=== PATIENT | female | born 1960 | race Caucasian/White ===

== ENCOUNTER 2023-03-13 10:56 | Emergency (ER) | payer OTHER, SELFPAY ==
--- NOTE | 2023-03-13 11:10 | ED.ANIMALBIT ---
HPI - Animal Bite General Chief Complaint: Animal Bite Stated Complaint: Cat Bite/Right Arm Time Seen by Provider: 03/13/23 11:10 Source: patient Mode of arrival: ambulatory Limitations: no limitations History of Present Illness HPI narrative: 62-year-old female presented for complaint of cat bite to the right forearm yesterday. The cat is her domestic indoor cat, up to date on vaccinations. States the cat was playing when it bit her arm. Endorses the site has become more red and swollen over the past few days with moderate pain. Denies pus, drainage, or streaking up the arm. Denies n/v/d/f/c. Taking ibuprofen and applying ice. Related Data Home Medications Medication Instructions Recorded Confirmed esomeprazole magnesium 40 mg mg 03/13/23 capsule,delayed release fluoxetine 10 mg capsule mg 03/13/23 hydrocodone 5 mg-acetaminophen 325 tablet 03/13/23 mg tablet pregabalin 75 mg capsule mg 03/13/23 tizanidine 2 mg tablet mg 03/13/23 Allergies Allergy/AdvReac Type Severity Reaction Status Date / Time No Known Allergies Allergy Mild Verified 04/05/10 21:57 Review of Systems Review of Systems: CONSTITUTIONAL: Denies body aches, fever, chills, or sweats. EYES: Denies visual changes, redness, or discharge. ENT: Denies rhinorrhea, congestion CARDIOVASCULAR: Denies chest pain, palpitations, or edema. RESPIRATORY: Denies cough or dyspnea. GASTROINTESTINAL: Denies abdominal pain, nausea, vomiting, or diarrhea. SKIN: reports redness to right forearm MUSCULOSKELETAL: Denies back pain, joint pain, or myalgia. NEUROLOGIC: Denies headache, numbness, tingling, or weakness. [facility] Past Medical History Medical History (Updated 03/13/23 @ 11:20 by Martha Mariscal APRN) No pertinent past medical history Comments At time of signature, I have reviewed and agree with nursing past medical, surgical, social and family history unless otherwise noted. Please see nursing chart for further information. There is no relevant family history pertinent to the presenting complaint Exam Narrative: GENERAL: Well-appearing HEAD: Normocephalic, atraumatic. EYES: conjunctivae clear, and EOMI. ENT: Mucous membranes moist. Oropharynx without edema, erythema or lesions. NECK: Supple. No lymphadenopathy CHEST: Clear to auscultation. HEART: Regular rate and rhythm. SKIN: Warm, dry. right forearm dorsal surface with approx [id number] area of erythema and mild swelling c/w mild cellulitis surrounding scabbed puncture sites at the center. Cellulitis is not circumferential. No fluctuance, purulence or drainage, no induration or streaking. Site is mildly tender. No swelling to wrist or hand, normal color to hand. CMS intact. NEURO: Alert and oriented x3. Extrem: Elbow/forearm/wrist images: 1. area of mild swelling and erythema Course Course Emergency Course: Patient is aware of diagnosis, understands and agrees to treatment plan. Anticipatory guidance given. Patient agrees to follow-up as directed and is aware of reasons to seek care at the emergency department. Portions of this record may have been created with voice recognition software Level of Care: Express Care Visit Vital Signs Vital signs: Reviewed MDM - Animal Bite MDM Narrative Medical decision making narrative: Discussed physical exam findings c/w mild cellulitis resulting from cat bite sustained yesterday. Rx Augmentin. Advised supportive measures and signs/symptoms to go to the ER. Pt is appropriate for outpt treatment and f/u. Differential Diagnosis Differential diagnosis: Likely bite by animal, cat bite and rabies contact Discharge Plan Discharge Clinical Impression: Cat bite Patient Disposition: Home, Self-Care Condition: Stable Instructions: Antibiotic Form, Animal Bite (ED) Additional Instructions: Keep the area clean and dry - cleanse with warm water and mild soap and allow to fully dry. Ok to apply neosporin to the si
[2023-03-13 11:12] VITALS: BP 100/65; PULSE 74; RESP 16; TEMP 36.8; O2SAT 100
== END 2023-03-13 11:22 | disposition home or self-care (01) ==
PROVIDERS: Emergency Provider Nurse Practitioner Family; PCP Internal Medicine
DX: S51.831A Puncture wound without foreign body of right forearm, initial encounter (principal); W55.01XA Bitten by cat, initial encounter
CPT/HCPCS: 99213; G0463

== ENCOUNTER 2023-08-23 15:11 | Emergency (ER) | payer OTHER, SELFPAY ==
[2023-08-23 15:19] VITALS: BP 111/46; PULSE 77; RESP 20; TEMP 37.3; O2SAT 100
--- NOTE | 2023-08-23 15:34 | ED.WOUNDLAC ---
HPI - Wound/Laceration General Chief Complaint: Wound/Laceration Stated Complaint: Laceration to Finger Time Seen by Provider: 08/23/23 15:35 Source: patient Mode of arrival: ambulatory Limitations: no limitations History of Present Illness HPI narrative: 63 y/o female presented for c/o laceration to left index finger (distal phalanx). Injury sustained last night around 2100 states she cut the finger on a piece of metal while at work. Denies decreased ROM at joint. No active bleeding. right-hand dominant. Unsure of last tetanus. Related Data Allergies Allergy/AdvReac Type Severity Reaction Status Date / Time No Known Allergies Allergy Mild Verified 08/23/23 15:14 Review of Systems Review of Systems: CONSTITUTIONAL: Denies body aches, fever, chills, or sweats. EYES: Denies visual changes, redness, or discharge. ENT: Denies rhinorrhea, congestion CARDIOVASCULAR: Denies chest pain, palpitations, or edema. RESPIRATORY: Denies cough or dyspnea. GASTROINTESTINAL: Denies abdominal pain, nausea, vomiting, or diarrhea. SKIN: reports finger laceration MUSCULOSKELETAL: Denies back pain, joint pain, or myalgia. NEUROLOGIC: Denies headache, numbness, tingling, or weakness. [facility] Past Medical History Medical History (Updated 08/23/23 @ 15:56 by Martha Wood, GWENDOLYN) No pertinent past medical history Comments At time of signature, I have reviewed and agree with nursing past medical, surgical, social and family history unless otherwise noted. Please see nursing chart for further information. There is no relevant family history pertinent to the presenting complaint Exam Narrative: GENERAL: Well-appearing HEAD: Normocephalic, atraumatic. EYES: conjunctivae clear, and EOMI. ENT: Mucous membranes moist. Oropharynx without edema, erythema or lesions. NECK: Supple. No lymphadenopathy CHEST: Clear to auscultation. HEART: Regular rate and rhythm. SKIN: Warm, dry. Left 2nd digit lac to distal phalanx/DIP approx 2cm not gaping, no bleeding, no surrounding swelling. NEURO: Alert and oriented x3. Course Course Emergency Course: Patient is aware of diagnosis, understands and agrees to treatment plan. Anticipatory guidance given. Patient agrees to follow-up as directed and is aware of reasons to seek care at the emergency department. Portions of this record may have been created with voice recognition software Level of Care: Express Care Visit Vital Signs Vital signs: Vital Signs Temperature 99.1 F 08/23/23 15:19 Pulse Rate 77 08/23/23 15:19 Respiratory Rate 20 08/23/23 15:19 Blood Pressure 111/46 L 08/23/23 15:19 Pulse Oximetry 100 08/23/23 15:19 Oxygen Delivery Room Air 08/23/23 15:19 Temperature 99.1 F 08/23/23 15:19 Pulse Rate 77 08/23/23 15:19 Respiratory Rate 20 08/23/23 15:19 Blood Pressure 111/46 L 08/23/23 15:19 Pulse Oximetry 100 08/23/23 15:19 Oxygen Delivery Room Air 08/23/23 15:19 Reviewed Procedures Laceration left 2nd digit: Date: 08/23/23 Size (cm): 2 Description: linear and clean Depth: simple, single layer Pre-repair: wound explored and other (cleansed with skintegrity) ====== Skin Level ====== Skin layer closed with: dermabond and steri strips ====== Subcutaneous Layer ====== ====== Muscle Layer ====== ====== Tendon Layer ====== Dressing: Finger splint applied MDM - Wound/Laceration MDM Narrative Medical decision making narrative: Discussed physical exam findings, laceration repaired with steri strips, dermabond and splint applied. Tetanus updated. Advised supportive measures and signs/symptoms to go to the ER. Pt is appropriate for outpt treatment and f/u. Differential Diagnosis Differential diagnosis: Likely laceration, abrasion and avulsion of skin Discharge Plan Discharge Clinical Impression: Finger laceration Qualifiers: Encounter type: initial enc
[2023-08-23] MEDS: TETANUS,DIPHTHERIA,AC PERTUSSIS ADULT (0.5 ML) BOOSTRIX IM (15:59)
== END 2023-08-23 16:20 | disposition home or self-care (01) ==
PROVIDERS: Emergency Provider Nurse Practitioner Family; PCP Internal Medicine
DX: S61.211A Laceration without foreign body of left index finger without damage to nail, initial encounter (principal); W45.8XXA Other foreign body or object entering through skin, initial encounter; Z23 Encounter for immunization
CPT/HCPCS: 12001; 90471; 90715; 99213; G0463

== ENCOUNTER 2023-11-21 09:25 | Emergency (ER) | payer OTHER, SELFPAY ==
[2023-11-21 09:30] VITALS: BP 104/71; PULSE 73; RESP 16; TEMP 36.2; O2SAT 99
--- NOTE | 2023-11-21 09:45 | ED.GENADULT ---
HPI - General Adult General Chief complaint: Urogenital-Female Stated complaint: Urinary Problem Source: patient, RN notes reviewed and old records reviewed Mode of arrival: ambulatory Limitations: no limitations History of Present Illness HPI narrative: 63-year-old female presents to [facility] with complaints of burning with urination, urinary frequency, urinary urgency that started Sunday/ Sunday. Patient states is having slight suprapubic pain/ tenderness but denies back pain, vomiting, fever. Related Data Home Medications Medication Instructions Recorded Confirmed fluoxetine 10 mg capsule 10 mg PO DAILY 11/21/23 11/21/23 omeprazole 40 mg capsule,delayed 40 mg PO DAILY 11/21/23 11/21/23 release Allergies Allergy/AdvReac Type Severity Reaction Status Date / Time No Known Allergies Allergy Mild Verified 11/21/23 09:49 Review of Systems Constitutional: Constitutional: Reports no additional constitutional complaints, Denies body ache(s), Denies chills, Denies fatigue, Denies fever(s) and Denies headache(s) Eyes: Eyes: Reports no additional eye complaints and Denies blurry vision ENT: Reports system reviewed and no additional complaints, except as documented, Denies vertigo, Denies dizziness, Denies ear discharge, Denies otalgia, Denies facial pain, Denies headache(s), Denies nasal congestion, Denies nasal discharge, Denies sinus pain, Denies sinus pressure and Denies sore throat Cardiovascular: Cardiovascular: Reports no additional cardiovascular complaints, Denies chest pain, Denies chest pain at rest, Denies rapid heart rate and Denies dyspnea Respiratory: Respiratory: Reports no additional respiratory complaints, Denies chest congestion, Denies cough, Denies pain on inspiration, Denies pain with cough and Denies dyspnea Gastrointestinal: Gastrointestinal: Reports abdominal pain (suprapubic), Denies diarrhea, Denies nausea and Denies vomiting Genitourinary: Genitourinary: Reports as per HPI, Reports nocturia, Reports dysuria and Reports urinary urgency Integumentary/Breasts: Skin/Breast: Denies rash Neurologic: Reports system reviewed and no additional complaints, except as documented, Denies vertigo, Denies dizziness and Denies headache(s) Endocrine: Endocrine: Denies fatigue [facility] Past Medical History Medical History No pertinent past medical history Comments At the time of my signature, I reviewed and agree with the nursing past medical, surgical, social, and family history. There is no relevant family history pertinent to the patient complaint. Exam Const: General: cooperative, healthy appearing, no acute distress and well nourished Nutritional Appearance: well nourished Orientation/consciousness: patient oriented x3 Limitations: no limitations HENMT: Head: normal to inspection and normocephalic Ears: external ears normal Face/Nose/Sinus: normal facial exam Face and sinus: normal facial exam Mouth: Yes Normal oral and palatal mucosa present, Yes oropharynx normal and Yes moist mucous membranes Eyes: General: appearance normal, both eyes and all related structures Sclera: sclerae normal Pupils: Equal, round and reactive pupils present Resp: Effort & Inspection: normal respiratory effort, able to speak in complete sentences, no audible wheezes, no cough, no respiratory distress and no retractions GI: GI Palp: Yes abdominal tenderness ( Suprapubic), Yes Soft to palpation, No Firmness to palpation present (GI), No Guarding due to palpation present (GI), No Rigid due to palpation, Yes No hepatosplenomegaly present, No Splenomegaly present, No Hernia present and No Palpable mass present : General: Yes bladder normal to inspection, Yes bladder normal to palpation and Yes no CVA tenderness Skin: General skin exam: normal color and no rashes or lesions noted Neuro: General: patient oriented x3 Cranial nerves: Yes Equal, round and reactiv
== END 2023-11-21 09:59 | disposition home or self-care (01) ==
PROVIDERS: Emergency Provider Registered Nurse; PCP Internal Medicine
DX: N30.01 Acute cystitis with hematuria (principal); B96.20 Unspecified Escherichia coli [E. coli] as the cause of diseases classified elsewhere
CPT/HCPCS: 81003; 87077; 87086; 87088; 87186; 99213; G0463

== ENCOUNTER 2024-03-09 17:09 | Emergency (ER) | payer OTHER, SELFPAY ==
[2024-03-09 17:18] VITALS: BP 116/67; PULSE 140; RESP 18; TEMP 36.7; O2SAT 98
--- NOTE | 2024-03-09 17:29 | ED.GENADULT ---
HPI - General Adult General Chief complaint: Urogenital-Female Stated complaint: Urinary Problem Source: patient Mode of arrival: ambulatory Limitations: no limitations History of Present Illness HPI narrative: Patient presents for evaluation of urinary symptoms. Symptom onset this morning. She reports dysuria, urinary frequency hesitancy, incomplete emptying, and low back pain. No fever, chills, nausea, abdominal pain. She has a history of urinary tract infections and this feels similar. Related Data Home Medications Medication Instructions Recorded Confirmed fluoxetine 10 mg capsule 10 mg PO DAILY 11/21/23 11/21/23 omeprazole 40 mg capsule,delayed 40 mg PO DAILY 11/21/23 11/21/23 release pregabalin 75 mg capsule mg 03/09/24 Allergies Allergy/AdvReac Type Severity Reaction Status Date / Time No Known Allergies Allergy Mild Verified 11/21/23 09:49 Review of Systems Review of Systems: CONSTITUTIONAL: Denies fever, chills, or sweats. EYES: Denies visual changes, redness, or discharge. ENT: Denies rhinorrhea, congestion, sore throat, or otalgia. CARDIOVASCULAR: Denies chest pain, palpitations, or edema. RESPIRATORY: Denies cough or dyspnea. GASTROINTESTINAL: Denies abdominal pain, nausea, vomiting, or diarrhea. GENITOURINARY: Reports frequency, hesitancy, urgency, dysuria, incomplete emptying SKIN: Denies rash or itching. MUSCULOSKELETAL: Reports low back pain. Denies joint pain, or myalgia. NEUROLOGIC: Denies headache, numbness, dizziness, or weakness. PSYCHIATRIC: Denies anxiety or depression. [facility] Past Medical History Medical History No pertinent past medical history Surgical History Surgical History No pertinent past surgical history Family History Family History Mother Family history non-contributory Social History Social History Substance use: never Gender identity (if verbalized by the patient): Female Spiritual care concerns: No Exam Narrative: GENERAL: Well-appearing, well-nourished, and in no acute distress. HEAD: Normocephalic, atraumatic. EYES: PERRLA and EOMI. ENT: Nares clear, no rhinorrhea or epistaxis. Mucous membranes moist. Oropharynx without tonsillar hypertrophy exudate or other lesions. Bilateral TMs pearly merchant nonbulging NECK: Supple. No adenopathy or masses. No carotid bruits or JVD CHEST: Clear to auscultation. No respiratory distress. No wheezes rales or rhonchi HEART: Rate 108. Normal rhythm. No murmur heard. Normal peripheral pulses. ABDOMEN: Soft, nontender, nondistended, normal active bowel sounds. EXTREMITIES: Normal range of motion. No edema. SKIN: Warm, dry, no rash. NEURO: No focal deficits. Alert and oriented x3. PSYCH: Anxious. Normal mood and affect. Course Course Emergency Course: This is a 63-year-old female who presented for evaluation urinary symptoms. Her heart rate was initially elevated but improved on my evaluation and likely 2/2 anxiety. Urine results today consistent with UTI. Will send Bactrim and Pyridium to her pharmacy. She should follow-up with her primary care provider and go to the ER for worsening symptoms. Patient in agreement with plan of care. Level of Care: Express Care Visit Vital Signs Vital signs: Vital Signs Temperature 36.7 C 03/09/24 17:18 Pulse Rate 140 H 03/09/24 17:18 Respiratory Rate 18 03/09/24 17:18 Blood Pressure 116/67 03/09/24 17:18 Pulse Oximetry 98 03/09/24 17:18 Oxygen Delivery Room Air 03/09/24 17:18 Temperature 36.7 C 03/09/24 17:18 Pulse Rate 140 H 03/09/24 17:18 Respiratory Rate 18 03/09/24 17:18 Blood Pressure 116/67 03/09/24 17:18 Pulse Oximetry 98 03/09/24 17:18 Oxygen Delivery Room Air 03/09/24
[2024-03-09 17:31] LABS: EDUAAPPEAR Cloudy; EDUABILI Negative; EDUABLOOD 1+; EDUACOLOR1 Yellow; EDUAGLUCOSE Negative; EDUAKETONE Trace; EDUALEUKO 1+; EDUANITRATE Negative; EDUAPH 5.5; EDUAPROTEIN Negative; EDUAUROBILI 0.2
== END 2024-03-09 17:32 | disposition home or self-care (01) ==
PROVIDERS: Emergency Provider Nurse Practitioner; PCP Internal Medicine
DX: N39.0 Urinary tract infection, site not specified (principal)
CPT/HCPCS: 81003; 87077; 87086; 87088; 87186; 99213; G0463

== ENCOUNTER 2024-05-01 08:36 | Emergency (ER) | payer OTHER, SELFPAY ==
[2024-05-01 08:53] VITALS: BP 114/62; PULSE 55; RESP 16; TEMP 36.5; O2SAT 100
--- NOTE | 2024-05-01 08:56 | ED.UPPEXIN ---
HPI - Extremity Injury (Upper) General Chief Complaint: Extremity Injury, Upper Stated Complaint: rt wrist injury Time Seen by Provider: 05/01/24 08:59 Source: patient, RN notes reviewed and old records reviewed Mode of arrival: ambulatory Limitations: no limitations History of Present Illness HPI narrative: 61-year-old female to [facility] for complaints of left Wrist/hand pain. Patient reports that back in March she struck her left mid dorsal forearm against a metal rack in the freezer when trying to get something out. patient states over the past week she has had pain in dorsal hand and has noticed a raised area there. Patient denies any recent injury, numbness, tingling weakness. Patient states that she saw her PCP and was told that she likely had a deep bruise her dorsal forearm. Patient has treated ibuprofen and an elastic wrist brace with little relief. Patient in no acute distress. Related Data Home Medications Medication Instructions Recorded Confirmed fluoxetine 10 mg capsule 10 mg PO DAILY 11/21/23 05/01/24 omeprazole 40 mg capsule,delayed 40 mg PO DAILY 11/21/23 05/01/24 release pregabalin 75 mg capsule 75 mg PO DAILY 03/09/24 05/01/24 Allergies Allergy/AdvReac Type Severity Reaction Status Date / Time No Known Allergies Allergy Mild Verified 05/01/24 08:54 Review of Systems Review of Systems: All systems reviewed & are unremarkable except as noted in HPI and below Constitutional: Constitutional: Reports no additional constitutional complaints Eyes: Eyes: Reports no additional eye complaints ENT: Reports system reviewed and no additional complaints, except as documented Cardiovascular: Cardiovascular: Reports no additional cardiovascular complaints, Denies chest pain and Denies dyspnea Respiratory: Respiratory: Reports no additional respiratory complaints, Denies cough and Denies dyspnea Musculoskeletal: Musculoskeletal: Reports as per HPI and Reports other Comments: Left dorsal hand pain without injury Neurologic: Reports system reviewed and no additional complaints, except as documented Psychiatric: Psychiatric: Reports no additional psychiatric complaints [facility] Past Medical History Medical History No pertinent past medical history Surgical History Surgical History No pertinent past surgical history Family History Family History Mother Family history non-contributory Social History Social History Substance use: never Gender identity (if verbalized by the patient): Female Spiritual care concerns: No Comments At the time of my signature, I reviewed and agree with the nursing past medical, surgical, social, and family history. There is no relevant family history pertinent to the patient complaint. Exam Const: General: cooperative, comfortable, no acute distress, alert and well nourished Nutritional Appearance: well nourished Orientation/consciousness: patient oriented x3 Limitations: no limitations HENMT: Head: normal to inspection Ears: external ears normal Face/Nose/Sinus: Normal external nose present, Normal nares present, normal facial exam, No erythema and No edema Face and sinus: normal facial exam, no erythema and no edema Mouth: Yes Normal oral and palatal mucosa present Eyes: General: appearance normal, both eyes and all related structures Neck: Neck: normal visual inspection, full ROM and no meningeal signs Chest: Chest palpation & inspection: normal inspection of the chest Resp: Effort & Inspection: normal respiratory effort and able to speak in complete sentences Auscultation: clear to auscultation bilaterally Cardio: Jugular venous distension: no JVD Rate: regular rate Rhythm: regular rhythm [place]
[2024-05-01 09:02] VITALS: BP 114/62; PULSE 55; RESP 16; TEMP 36.5; O2SAT 100
== END 2024-05-01 09:18 | disposition home or self-care (01) ==
PROVIDERS: Emergency Provider Nurse Practitioner Family; PCP Internal Medicine
DX: M25.532 Pain in left wrist (principal); K21.9 Gastro-esophageal reflux disease without esophagitis; F41.9 Anxiety disorder, unspecified
CPT/HCPCS: 99212; G0463

== ENCOUNTER 2024-05-20 11:20 | Outpatient (CLI) | payer OTHER, SELFPAY ==
--- NOTE | ~2024-05-20 | XR_ITS ---
Right Hand Technique: PA, oblique, and lateral views were obtained. Clinical History: Pain Findings: No acute fracture or dislocation is seen. Osseous alignment is anatomic. Joint spaces are p reserved. Soft tissues are unremarkable. Impression: Unremarkable right hand. Reviewed, dictated and finalized at location M. Impression: Unremarkable right hand.
--- NOTE | ~2024-05-20 | XR_ITS ---
Left Hand Technique: PA, oblique, and lateral views were obtained. Clinical History: Pain Findings: No acute fracture or dislocation is seen. Osseous alignment is anatomic. Joint spaces are p reserved. Soft tissues are unremarkable. Impression: Unremarkable left hand. Reviewed, dictated and finalized at location M. Impression: Unremarkable left hand.
== END 2024-05-20 11:21 | disposition home or self-care (01) ==
LOC: ANHIMG 11:22
PROVIDERS: PCP Internal Medicine; Visit Provider Plastic Surgery
DX: M19.042 Primary osteoarthritis, left hand (principal); M19.041 Primary osteoarthritis, right hand
CPT/HCPCS: 73130

== ENCOUNTER 2024-07-04 08:15 | Outpatient (RCR) | payer OTHER, SELFPAY ==
--- NOTE | 2024-06-05 09:43 | OTOPEVAL1 ---
Assessment and note entered by Nirmal Rock, YAMILA/Yogesh, CHT Evaluation Information Assessment Status Evaluation Diagnosis M65.4 Radial styloid tenosynovitis Subjective Information Patient is right handed. She reports left wrist pain since early March. She works in a [employer] and has been having increasingly difficult time managing work tasks. She reports when she leaves work her pain is 10/10, my hands are on fire . She uses heat packs for relief. She does note having an injury to the radial side of the wrist just prior to having a flair up of all of this pain. She reports she banged her arm on a metal shelf. Reported Pain Level Pain Score 5: Self Report Assessment OT Clinical Summary Patient referred to OT with dx of left radial styloid tenosynovitis. She presents with pain and weakness that is limiting her ability to complete work and ADL tasks without significant pain. Fabricated a long thumb spica orthotic today and she reports comfortable fit. Continued skilled OT indicated for use of modalities for pain relief, progressive therapeutic exercise, and HEP instruction to facilitate return to functioning. Plan of Care Interventions Therapeutic Exercise,Manual Therapy,Therapeutic Activities,Hot Pack/Cold Pack,Check Out for Orthotic/Pr,Ultrasound,Paraffin OT Services Indicated Yes Treatment Frequency and 2x/week for 8 visits Duration These treatments will address the objective and functional deficits as defined above. The patient will be advanced safely and appropriately in order for the patient to progress towards his/her prior level of function. Additional exercises will be introduced and as well as a comprehensive home exercise program upon discharge, if needed, ?to ensure carryover of functional gains achieved in the clinic. This treatment plan has been reviewed and agreement upon by the patient.
--- NOTE | 2024-06-05 09:43 | OPREHPOC ---
Outpatient Therapy Plan of Care This is a Multidisciplinary Plan of Care that may contain components documented by all disciplines (PT, OT, and ST.) OT Problem 1 OT Problem #1 Knowledge Deficit OT Goal 1 Goal / Goal Update 1. Pt to be indep with instructed materials. OT Problem 2 OT Problem #2 Pain OT Goal 1 Goal / Goal Update 1. Patient to report no instances of 10/10 pain in the last week. 2. Patient to report pain less than 5/10 with ADLs and work tasks. OT Problem 3 OT Problem #3 Impaired Strength OT Goal 1 Goal / Goal Update 1. Patient to improve functional strength of the left wrist for ADLs as demonstrated by completing wrist strengthening HEP with 2 lb. weights without pain. 2. Patient to improve functional strength of the left hand for ADLs as demonstrated by completing model technician/pinch strengthening HEP with yellow putty without pain. Target Visit 8
--- NOTE | 2024-07-17 09:54 | PCOTNOTE ---
Patient did not show up for scheduled appointment this date. Called patient and left voicemail regarding missed appt.
--- NOTE | 2024-09-01 11:45 | OTOPDC ---
Occupational Therapy Discharge Notification - Patient attended the initial evaluation on 06/05/24 and 6 follow up appointments. - She did not show for her appointment on 07/17/24 and has not rescheduled. - Discharging OT at this time. Referring Provider: Francisco Valente MD
== END 2024-08-29 11:32 | disposition home or self-care (01) ==
LOC: ANHOT 08:15
PROVIDERS: PCP Internal Medicine; Visit Provider Plastic Surgery
DX: M65.4 Radial styloid tenosynovitis [de Quervain] (principal)
CPT/HCPCS: 97018; 97035; 97110; 97140; 97165; 97530; L3806

== ENCOUNTER 2024-09-04 14:14 | Emergency (ER) | payer OTHER, SELFPAY ==
--- OUTSIDE RECORDS SUMMARY | 2024-09-04 14:19 | XMS_ITS | Encounter Summary ---
Author Organization [facility] Address [address] [place] [address] Care Team Providers Care Javascript Application Developer Name Role Phone Giorgio Patel MD Primary Care Provider Encounter Details Date Type Department Care Team (Late st Contact Info) Description 06/04/2019 Orders Only [address] [id number] Rhonda Barks[place], TIMBER MANAGEMENT SPECIALIST [address] [place] [address] [address] Social History Tobacco Use Types Packs/Day Years Used Date Smoking Tobacco: Every Day Smokeless Tobacco: Never Comments:Smoking History Pac ks/day: 0.5 Packs Alcohol Use Standard Drinks/Week Comments No 0 (1 standard drink = 0.6 oz pur e alcohol) PHQ-2 Answer Date Recorded PHQ-2 Score 0 06/02/2019 Comments Unknown Sex and Gender Information Value Date Recorded Sex Assigned at Not on file Legal Sex Female 11:55 PM MUSIC DIRECTOR Gender Identity Female 12/09/2021 12:28 AM CDT Sexual Orientation Not on file documented as of this encounter Plan of Treatment Not on file documented as of this encounter Visit Diagnoses Not on filedocumented in this encounter Care Teams Javascript Application Developer Relationship Specialty Start Date End Date Giorgio Patel MD PCP - General 10/20/16 documented as of this encounter
--- OUTSIDE RECORDS SUMMARY | 2024-09-04 14:19 | XMS_ITS | Encounter Summary ---
Author Organization [facility] Address [address] [place] [id number] Care Team Providers Care Assembly Machine Tool Setter Name Role Phone Giorgio Patel MD Primary Care Provider Giorgio Patel MD Primary Care Provider Giorgio Patel MD Primary Care Provider Reason for Referral * (Routine) - Closed Specialty Diagnoses / Procedures Referred By Contac t Referred To Contact Procedures ECG 12 lead [facility] [address] [place] [address] Phone: tel: fax: Referral ID Status Reason Start Date Expiration Date Visits Re quested Visits Authorized [id number] Closed 06/04/2019 12/13/2020 1 1 Encounter Details Date Type Department Care Team (Late st Contact Info) Description 11/03/2009 Orders Only [facility] [address] [place] [address] Giorgio Patel MD [address] [place] [address] [place] [address] Social History Tobacco Use Types Packs/Day Years Used Date Smoking Tobacco: Never Assessed Comments Unknown Sex and Gender Information Value Date Recorded Sex Assigned at Not on file Legal 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 Gender Identity Female 12/09/2021 12:28 AM CDT Sexual Orientation Not on file documented as of this encounter Plan of Treatment Not on file documented as of this encounter Procedures Procedure Name Priority Date/Time Associated Diagnosis Comments ECG 12-LEAD Routine 11/03/2009 documented in this encounter Results * ECG 12 lead (11/03/2009) us Historical Provider ECG ORDERABLES Final Res ult documented in this encounter Visit Diagnoses Not on filedocumented in this encounter Care Teams Assembly Machine Tool Setter Relationship Specialty Start Date End Date Giorgio Patel MD PCP - General 10/20/16 Giorgio Patel MD PCP - General 06/26/14 10/19/16 Giorgio Patel MD PCP - General 09/09/07 06/25/14 documented as of this encounter
--- OUTSIDE RECORDS SUMMARY | 2024-09-04 14:20 | XMS_ITS | Encounter Summary ---
Author Organization [facility] Address [address] [place] [address] Phone Care Team Providers Care Production Foreman Name Role Phone Giorgio Patel MD Primary Care Provider Encounter Details Date Type Department Care Team (Late st Contact Info) Description 07/13/2017 Orders Only [facility] ProviderMarina MD [address] [place] [id number] Social History Tobacco Use Types Packs/Day Years Used Date Smoking Tobacco: Every Day Comments:Smoking History Pac ks/day: 0.5 Packs Alcohol Use Standard Drinks/Week Comments No 0 (1 standard drink = 0.6 oz pur e alcohol) Comments Unknown Sex and Gender Information Value Date Recorded Sex Assigned at Not on file Legal 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 Historical Provider LAB BLOOD ORDERABLES Maureen l Result documented in this encounter Visit Diagnoses Not on filedocumented in this encounter Care Teams Production Foreman Relationship Specialty Start Date End Date Giorgio Patel MD PCP - General 10/20/16 documented as of this encounter
--- OUTSIDE RECORDS SUMMARY | 2024-09-04 14:20 | XMS_ITS | Clinical Summary ---
Author Organization [facility] Address [address] [place] [id number] Care Team Providers [employer] Principal Name Role Phone Daniel Zayas MD Primary Care Provider Allergies No known active allergies Medications esomeprazole DR (NexIUM) 40 mg capsule TAKE 1 CAPSULE BY MOUTH ONCE DAILY BEFORE BREAKFAST 30 capsule 12/22/19 23 Active FLUoxetine 10 mg tablet/capsule Take 1 capsule by mouth once daily 90 capsule 3 09/07/19 24 Active traZODone (DESYREL) 50 mg tablet Take 1 tablet (50 mg total) by mouth nightly as needed for sleep 90 tablet 3 04/24/20 24 025 Active pregabalin (LYRICA) 75 mg capsule Take 1 capsule by mouth twice daily 60 capsule 5 04/24/20 24 Active HYDROcodone-ac etaminophen (NORCO) 5-325 mg per tablet Take 1 tablet by mouth every 4 (four) hours as needed for pain Take 1 tablet by mouth every 4 (four) hours as needed for pain 75 tablet 08/27/19 25 Active tiZANidine (ZANAFLEX) 2 mg tablet TAKE 1 TABLET BY MOUTH NIGHTLY FOR MUSCLE SPASM 30 tablet 08/28/19 25 Active tiZANidine (ZANAFLEX) 2 mg tablet Take 1 tablet (2 mg total) by mouth every 6 (six) hours as needed for muscle spasms 60 tablet 3 11/26/19 24 025 Discontinued HYDROcodone-ac etaminophen (NORCO) 5-325 mg per tablet Take 1 tablet by mouth every 4 (four) hours as needed for pain Take 1 tablet by mouth every 4 (four) hours as needed for pain 75 tablet 07/03/20 24 025 Discontinued(Re order) Active Problems Problem Noted Date Diagnosed Date History of lumbar spinal fusion 04/19/2022 Moderate episode of recurrent major depressive d isorder 04/18/2021 Past use of tobacco 04/15/2020 Epigastric pain 05/29/2019 Assessment & Plan (05/29/2019 10:59 AM TECHNICAL SALES SUPPORT MANAGER): Concerning of possible gastritis or gastric ulceration given presentation. EKG WNL today in clinic. Hold and call RUQ ultrasound to rule out concerns of cholecystitis given radicular pain to the scapula. Pending negative testing, which will be detailed above, recommending CBC & occult stool to eval for blood loss, CMP and pancreatic enzymes. The insurance coverage recommending omeprazole 20 mg b.i.d., p.r.n. use of Zofran, dietary modifications also encouraged in the interim. Consultation to vascular ultrasound technician for possible EGD pending negative RUQ ultrasound. Addendum created below with findings of RUQ testing. Left peroneal mononeuropathy 04/14/2019 Thoracic and lumbosacral neuritis 12/06/2013 Overview (10/25/2016): LUMBOSACRAL NEURITIS NOS Assessment & Plan (08/26/2018 9:28 AM TECHNICAL SALES SUPPORT MANAGER): I advised Pt is too early to fill her [place] that was last filled on 08/05/2018. I did encourage her to call us in 1 week to request script refill Resolved Problems Problem Noted Date Diagnosed Date Resolved Date Chest pain 05/29/2019 04/15/2020 Assessment & Plan (05/29/2019 10:56 AM TECHNICAL SALES SUPPORT MANAGER): Epigastric/chest pain with radiation to left scapula. EKG tracing above with prior tracing reviewed in 2009 w/o notable changes. Only cardiac risk factor this time as tobacco use. Working up further for possible gastritis VS other GI concerns. Red flags reviewed encouraging Pt to move for with ED presentation in the interim with any persistent, progressive chest pain pending results of all outpatient testing. Vitamin D deficiency 04/14/2019 020 Chronic right hip pain 08/26/201804/15 Assessment & Plan (08/26/2018 9:32 AM TECHNICAL SALES SUPPORT MANAGER): Suspicious of OA as cause of wtynx-hu-sxrzyde pain. Another differential diagnosis would include in injury to acetabulum based upon radiculopathy of pain. Recommending naproxen b.i.d., heat, an x-ray to diagnose etiology of condition. Will discuss further need for medications, consultations pending results of testing. Left maxillary sinusitis 07/19/201810/2018 Assessment & Plan (07/19/2018 10:21 AM TECHNICAL SALES SUPPORT MANAGER): Recommended use of humidifier or vaporizer, antihistamines budn-yrn-wvwdiam, nasal rinses, Flonase nasal spray, certainly for sore throat throat lozenges, salt water gargles, and Mucinex with increase fluids to assist with productivity and cough. I also encouraged him to take antibiotic as prescribed with side effects of medication discussed, to use antibiotics for specific antibiotics as recommended office, and close follow-up outpatient with any worsening or little improvement symptoms. Depression 12/06/2013 04/15/2020 Overview (10/25/2016): DEPRESSIVE DISORDER NEC Tobacco dependence syndrome 03/08/2011 04/15/2020 Overview (10/26/2016): Tobacco abuse Assessment & Plan (07/19/2018 10:24 AM TECHNICAL SALES SUPPORT MANAGER): Smoking cessation was encouraged in office today. Patient believes that she might actually be able to quit cold turkey and is strongly considering this. I did encourage her to reach out test we can assist with cessation in any way Menopausal syndrome 03/08/2011 04/15/20 20 Overview (10/27/2016): Menopausal syndrome Encounters Date Type Department Care Team Description 07/02/2024 Telephone [facility] Primary Care at [address] [place] [address] Deena Olson NP 07/02/2024 Orders Only [facility] Primary Care at [address] [phone] Deena Olson, NATE 06/30/2024 Telephone [facility] Primary Care at [address] [phone] Deena Olson, NATE 06/30/2024 Orders Only [facility] Primary Care at [address] [phone] Deena Olson, NATE Right wrist pain (Primary Dx) 06/27/2024 10:00 AM TECHNICAL SALES SUPPORT MANAGER Office Visit [facility] Primary Care at [address] [phone] Deena Olson NP Right wrist pain (Primary Dx); Ganglion cyst of both wrists 06/26/2024 11:31 AM TECHNICAL SALES SUPPORT MANAGER - 06/26/2024 1:41 PM TECHNICAL SALES SUPPORT MANAGER Emergency [facility] Emergency Department [address] [place] [address] Fall, initial encounter (Primary Dx) Discharge Disposition: Discharge to home or self care 06/26/2024 Nurse Triage [facility] Primary Care at [address] [phone] Daniel Zayas MD from Last 3 Months Immunizations Name Administration Dates Next Due H1N1 All Forms 10/30/2009 Influenza, Quadrivalent, Spl it, Preservative Free, Intradermal 04/07/2016 Influenza, Quadrivalent, Spl it, Preservative Free, Intramuscular 04/20/2023,04/19/2022,05/03/2021,04/15,05/29/2019,08/26/2018,08/10/2017 Influenza, Split 06/13/2013 Influenza, Trivalent, IM (MDV) 06/15/2015,2012,04/30/2009 Influenza, Trivalent, Preser vative Free, Intramuscular 04/24/2024,06/15/2015 Influenza, Trivalent, Recomb inant, Egg Free, Preservative Free, Antibiotic Free, IM (FLUBLOK) 06/26/2014 Influenza, Unspecified 05/03/2021(Deferr ed: Patient Refused),04/18/2021(Deferred: Patient Refused),03/18/2021(Deferred: Patient Refused),05/11/2017 Pfizer SARS-CoV-2 Monovalent Vaccination (12+ Yrs) PURPLE 10/27/2020,09/29/2020 Pneumococcal Polysaccharide PPV23 06/15/2015 Tdap 04/30/2009 Surgical History Surgery Date Site/Laterality Comments TUBAL LIGATION Bilateral tubal ligation OTHER SURGICAL HISTORY BACK FUSION L 4 L 5 2009 Medical History Medical History Date Comments 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 Hx Other Medical LBP Depression Depression Osteoarthritis Osteoarthritis Smoking previous Family History Medical History Relation Name Comments Parkinsonism Father Parkinson's dis ease; Cause of : Parkinson's disease Alzheimer's disease Mother Alzheime r's Disease; Other Mother Alive and well; Rheum arthritis Sister RA; Relation Name Status Comments Father (Age 55) Mother Alive Sister Social History Tobacco Use Types Packs/Day Years Used Date Smoking Tobacco: Former Cigarettes 0.5 20 Smokeless Tobacco: Never Tobacco Cessation:Counseling Given: Not Answered Comments:Smoking History Packs/day: 0.5 Packs Alcohol Use Standard Drinks/Week Comments No 0 (1 standard drink = 0.6 oz pur e alcohol) AUDIT-C Answer Date Recorded Q1: How often do you have a drink containing alcohol? Never 06/27/2024 Q2: How many drinks containi ng alcohol do you have on a typical day when you are drinking? Patient does not drink Q3: How often do you have si x or more drinks on one occasion? Never 06/27/2024 PHQ-2 Answer Date Recorded PHQ-2 Total Score (If total score is 3 or more points, staff should administer the PHQ-9) 0 06/27/2024 Personal Safety Answer Date Recorded Have you ever been in or are you currently in a harmful physical or emotional relationship or is someone making you feel afraid or unsafe? Denies 06/26/2024 Comments No Sex and Gender Information Value Date Recorded Sex Assigned at Not on file Legal Sex Female 11:55 PM TECHNICAL SALES SUPPORT MANAGER Gender Identity Female 12/09/2021 12:28 AM CDT Sexual Orientation Not on file Obstetrics History Para Term AB IAB SAB Ectopic Multiple Livin g Live Births 6 3 3 Date Outcome GA Total Labor Labor/2nd/3rd Weight Sex Type Anes PTL Anai A1 A5 Name Clin Term Term Term Last Filed Vital Signs Vital Sign Reading Time Taken Comments Blood Pressure 100/60 06/27/2024 9:53 AM TECHNICAL SALES SUPPORT MANAGER Pulse 71 06/27/2024 9:53 AM TECHNICAL SALES SUPPORT MANAGER Temperature 36.8 C (98.2 F) 06/26/2024 1:34 PM TECHNICAL SALES SUPPORT MANAGER Respiratory Rate 16 06/27/2024 9:53 AM TECHNICAL SALES SUPPORT MANAGER Oxygen Saturation 99% 06/27/2024 9:53 AM TECHNICAL SALES SUPPORT MANAGER Inhaled Oxygen Concentration - - Weight 51.7 kg (114 lb) 06/27/2024 9:53 AM TECHNICAL SALES SUPPORT MANAGER Height 162.6 cm (5' 4 ) 06/27/2024 9:53 AM TECHNICAL SALES SUPPORT MANAGER Body Mass Index 19.57 06/27/2024 9:53 AM TECHNICAL SALES SUPPORT MANAGER Plan of Treatment Health Maintenance Due Date Last Done Comments Hepatitis B Screening 1979 Zoster Vaccine (1 of 2) 2011 Osteoporosis Screening-Bone Density Scan 08/16/2017 08/16/2015 DTaP/Tdap/Td Vaccine (2 - Td or Tdap) 04/30/2019 04/30/2009 Breast Cancer Screening-Mammogram 04/22/2021 04/22/2020, 03/07/2011 Colon Cancer Screening-Colonoscopy 01/31/2022 02/01/2012, 02/01/2012 Cervical Cancer Screening 05/03/2022 05/03/2021 Covid-19 Vaccine ( season) 2024 10/27/2020, 09/29/2020 Regular Well Visit/Exam 18-64 04/24/2025 04/24/2024, 04/20/2023, 04/19/2022, Additional history exists Depression Screening 06/27/2025 06/27/2024, 04/24/2024, 04/20/2023, Additional history exists Colon Cancer Screening-CT Colonography Discontinued 02/01/2012, 02/01/2012 Colon Cancer Screening-DNA Stool Discontinued 02/01/2012, 02/01/2012 Colon Cancer Screening-FIT Discontinued 02/01/2012, Colon Cancer Screening-Sigmoidoscopy Discontinued 02/01/2012, 02/01/2012 Pneumococcal vaccine <65 Aged Out 06/15/2015 No longer eligible based on patient's age to complete this topic Hepatitis C Screening Completed 07/13/2017, 017 Influenza Vaccine Completed 04/24/2024, , 04/19/2022, Additional history exists Procedures Procedure Name Priority Date/Time Associated Diagnosis Comments XR SPINE LUMBAR 2 OR 3 VIEWS ED 06/26/2024 11:51 AM TECHNICAL SALES SUPPORT MANAGER XR HIP RIGHT 2 OR 3 VIEWS ED 06/26/2024 11:51 AM TECHNICAL SALES SUPPORT MANAGER XR WRIST RIGHT 3 OR MORE VIEWS ED 06/26/2024 11:51 AM TECHNICAL SALES SUPPORT MANAGER PAP WITH REFLEX TO HIGH RISK HPV Routine 05/03/2021 10:40 AM CDT SCREENING MAMMOGRAM BILATERAL W JUAN JOSE Schedule Routine, Read Routine (OP Routine) 04/22/2020 8:53 AM CDT Visit for screening mammogram HEPATITIS C AB REFLEX RNA QUANT PCR Routine 07/13/2017 9:14 AM TECHNICAL SALES SUPPORT MANAGER HM DEXA SCAN Routine 08/16/2015 COLONOSCOPY 02/01/2012 12:00 AM CDT from Last 3 Months or Most Recently Relevant to Health Maintenance Results * XR Hip Right 2 or 3 Views (06/26/2024 11:51 AM TECHNICAL SALES SUPPORT MANAGER) Anatomical Region Laterality Modality Lower Extremities, Hip, Pelvis Right C omputed Radiography 06/26/2024 12:1 4 PM TECHNICAL SALES SUPPORT MANAGER Narrative 06/26/2024 12:15 PM TECHNICAL SALES SUPPORT MANAGER EXAM DESCRIPTION: XR HIP RIGHT 2 OR 3 VIEWS REASON FOR STUDY: pain, fall c/o R hip and lower back pain after a fall at work last night. Hx of back surgery TECHNIQUE: 2 radiographic view(s) of the right hip . COMPARISON: 08/26/2018 FINDINGS: BONES/JOINTS: There is no acute fracture, malalignment or osseous abnormality. The hip joint spaces are normal. Degenerative changes of the pubic symphysis. SOFT TISSUES: Within normal limits. IMPRESSION: No acute osseous abnormality. THIS IS AN ELECTRONICALLY VERIFIED FINAL REPORT 06/26/2024 12:15 PM - Electronically signed by Basilio Cortes M.D. MM: MM Report ID: [id number] Reading Location: [id number] Procedure Note Basilio Cortes MD - 06/26/2024 EXAM DESCRIPTION: XR HIP RIGHT 2 OR 3 VIEWS REASON FOR STUDY: pain, fall c/o R hip and lower back pain after a fall at work last night. Hx ofback surgery TECHNIQUE: 2 radiographic view(s) of the right hip . COMPARISON: 08/26/2018 FINDINGS: BONES/JOINTS: There is no acute fracture, malalignment or osseousabnormality. The hip joint spaces are normal. Degenerative changes of the pubicsymphysis. SOFT TISSUES: Within normal limits. IMPRESSION: No acute osseous abnormality. THIS IS AN ELECTRONICALLY VERIFIED FINAL REPORT 06/26/2024 12:15 PM - Electronically signed by Basilio Cortes M.D. MM: MM Report ID: [id number] Reading Location: [id number] Isauro Segura SMT OPERATOR IMG XR PROCEDURES Final Res ult * XR Wrist Right 3 or More Views (06/26/2024 11:51 AM TECHNICAL SALES SUPPORT MANAGER) Anatomical Region Laterality Modality Upper Extremities, Wrist Right Compute d Radiography 06/26/2024 12:1 5 PM TECHNICAL SALES SUPPORT MANAGER Narrative 06/26/2024 12:17 PM TECHNICAL SALES SUPPORT MANAGER EXAM DESCRIPTION: XR WRIST RIGHT 3 OR MORE VIEWS REASON FOR STUDY: pain, fall c/o R hip and lower back pain after a fall at work last night. Hx of back surgery TECHNIQUE: 3 radiographic view(s) of the right rib . COMPARISON: None FINDINGS: No acute fracture or malalignment. Soft tissues are unremarkable. IMPRESSION: No acute osseous abnormality. THIS IS AN ELECTRONICALLY VERIFIED FINAL REPORT 06/26/2024 12:17 PM - Electronically signed by Charan Blue M.D. KR: MELISSA Report ID: [id number] Reading Location: [id number] Procedure Note Charan Blue MD - 06/26/2024 EXAM DESCRIPTION: XR WRIST RIGHT 3 OR MORE VIEWS REASON FOR STUDY: pain, fall c/o R hip and lower back pain after a fall at work last night. Hx ofback surgery TECHNIQUE: 3 radiographic view(s) of the right rib . COMPARISON: None FINDINGS: No acute fracture or malalignment. Soft tissues are unremarkable. IMPRESSION: No acute osseous abnormality. THIS IS AN ELECTRONICALLY VERIFIED FINAL REPORT 06/26/2024 12:17 PM - Electronically signed by Charan Blue M.D. KR: MELISSA Report ID: [id number] Reading Location: [id number] Isauro Segura SMT OPERATOR IMG XR PROCEDURES Final Res ult * XR Spine Lumbar 2 or 3 Views (06/26/2024 11:51 AM TECHNICAL SALES SUPPORT MANAGER) Anatomical Region Laterality Modality Spine N/A Computed Radiogr aphy 06/26/2024 12:1 7 PM TECHNICAL SALES SUPPORT MANAGER Narrative 06/26/2024 12:18 PM TECHNICAL SALES SUPPORT MANAGER EXAM DESCRIPTION: XR SPINE LUMBAR 2 OR 3 VIEWS REASON FOR STUDY: pain, fall c/o R hip and lower back pain after a fall at work last night. Hx of back surgery TECHNIQUE: 3 radiographic view(s) of the lumbar spine. COMPARISON: 11/15/2009 FINDINGS: ALIGNMENT: Anatomic. VERTEBRAE: Vertebral bodies of normal height. Of L4-L5. DISCS: Mild multilevel degenerative disc disease. SOFT TISSUES: Within normal limits. IMPRESSION: No acute findings of the lumbar spine. Mild multilevel degenerative disc disease. THIS IS AN ELECTRONICALLY VERIFIED FINAL REPORT 06/26/2024 12:18 PM - Electronically signed by Charan Blue M.D. KR: MELISSA Report ID: [id number] Reading Location: [id number] Procedure Note Charan Bleu MD - 06/26/2024 EXAM DESCRIPTION: XR SPINE LUMBAR 2 OR 3 VIEWS REASON FOR STUDY: pain, fall c/o R hip and lower back pain after a fall at work last night. Hx ofback surgery TECHNIQUE: 3 radiographic view(s) of the lumbar spine. COMPARISON: 11/15/2009 FINDINGS: ALIGNMENT: Anatomic. VERTEBRAE: Vertebral bodies of normal height. Of L4-L5. DISCS: Mild multilevel degenerative disc disease. SOFT TISSUES: Within normal limits. IMPRESSION: No acute findings of the lumbar spine. Mild multilevel degenerative disc disease. THIS IS AN ELECTRONICALLY VERIFIED FINAL REPORT 06/26/2024 12:18 PM - Electronically signed by Charan Blue M.D. KR: MELISSA Report ID: [id number] Reading Location: [place] [id number] Isauro Segura SMT OPERATOR IMG XR PROCEDURES Final Res ult * Pap with reflex to High Risk HPV (05/03/2021 10:40 AM CDT) Pap test 05/03/2021 10:4 0 AM CDT 05/03/2021 10:40 AM CDT Narrative 05/05/2021 3:19 PM CDT [facility] Department of Pathology [address] [place] [id number] Final Report with Addendum Note to Patients: This report may contain a detailed description of human tissue sent by a health care provider to the laboratory for pathologic evaluation. The content of this report is essential for diagnosis and may provide important critical findings. This information may be unfamiliar to patients to review without a medical professional present. It is advised that the patient review this report in the presence of a health care provider who can answer questions and explain the details. Patient Name: SVETA TAVERAS Address: [address] [place] [address] Gender: F : 1960 (Age: 60) Service: Laboratory Location: Lab Hospital #: [id number] Patient Type: [facility] Lab Taken: 05/03/2021 Received: 05/03/2021 Accessioned:: 05/04/2021 Reported: 05/05/2021 Physician(s): Dr. Daniel Zayas M.D. Dr. Daniel Zayas M.D. ARIANNE Galloway Diagnosis: Source of Specimen: Imaged Thinprep Pap Test plus HPV - Spooling Operator Cytologic Material Specimen Adequacy: - Specimen satisfactory for interpretation; indeterminate endocervical component due to marked atrophy General Category: - Negative for intraepithelial lesion or malignancy TUCKER Barclay(ASCP) TUCKER Haddad(ASCP) Report Electronically Reviewed and Signed Out By TUCKER Haddad(ASC) 05/05/2021 15:19:53 Addenda: HPV Test Interpretation NEGATIVE for types 16, 18, 31, 33, 35, 39, 45, 51, 52, 56, 58, 59, 66 and 68. Test performed utilizing Gen-Probe Aptima assay. TUCKER Haddad(ASCP) Report Electronically Reviewed and Signed Out By JACOB HaddadASCP) 05/04/2021 16:25:06 Specimen(s) Received: A: Imaged Thinprep Pap Test plus HPV - Spooling Operator Cytologic Material Clinical History: Last Menstrual Period: many years ago Menstrual History: Post-menopausal Clinical History: No previous Pap The Pap test is a screening test used to aid in the detection of cervical cancer and its precursors. It should not be the sole means by which malignant and premalignant lesions are diagnosed. Both false negative and false positive results may occur. It also has poor sensitivity for the detection of endometrial lesions and should not be used to evaluate suspected endometrial abnormalities. For these reasons it is most important to obtain Pap tests at regular intervals. The performance characteristics of some immunohistochemical stains, fluorescence in-situ hybridization tests and immunophenotyping by flow cytometry cited in this report (if any) were determined by the Surgical Pathology Department at [facility] as part of an ongoing engagement quality consultant program and in compliance with federally mandated regulations drawn from the Clinical Laboratory Improvement Act of 1988 (CLIA '88). Some of these tests rely on the use of analyte specific reagents and are subject to specific labeling requirements by the US Food and Drug Administration. Such diagnostic tests may only be performed in a facility that is certified by the Department of Health and Human Services as a high complexity laboratory under CLIA '88. The FDA has determined that such clearance or approval is not necessary. This test is used for clinical purposes. It should not be regarded as investigational or for research. Nevertheless, federal rules concerning the medical use of analyte specific reagents require that the following disclaimer be attached to the report: This test was developed and its performance characteristics determined by the Surgical Pathology Department [facility]. It has not been cleared or approved by the U. S. Food and Drug Administration. Daniel Zayas MD LAB CYTOLOGY ORDERABLES Final Result * Screening Mammogram Bilateral W Juan Jose (04/22/2020 8:53 AM CDT) Anatomical Region Laterality Modality Breast Bilateral Mammography 04/23/2020 9:49 AM CDT Impressions 04/23/2020 9:56 AM CDT There is no mammographic evidence of malignancy. A 1 year screening mammogram is recommended. BI-RADS: 1 - Negative. The patient will be entered into a reminder system with a target due date of 1 year for her next mammogram. Electronically signed by: Rajeev Bhardwaj M.D. Narrative 04/23/2020 9:56 AM CDT EXAMINATION: SCREENING MAMMOGRAM BILATERAL W JUAN JOSE ORDERING HEALTHCARE PROVIDER: DANIEL ZAYAS HISTORY: Routine screening mammography. COMPARISON: 03/07/2011. TECHNIQUE: CC and MLO views of the bilateral breasts were obtained with digital technique using breast tomosynthesis with C view. Computer aided detection was utilized. FINDINGS: DENSITY: There are scattered fibroglandular elements in the bilateral breasts. BREASTS: There are no suspicious masses, suspicious calcifications, or other suspicious findings in either breast. There has been no suspicious interval change. Daniel Zayas MD IMG MAMMO PROCEDURES Fi nal Result * Hepatitis C Antibody Reflex Hepatitis C RNA Quantitative PCR (07/13/2017 9:14 AM TECHNICAL SALES SUPPORT MANAGER) Hep C Ab Negative Negative [facility] Blood specimen (specimen) 07/13/2017 9:14 AM TECHNICAL SALES SUPPORT MANAGER 07/13/2017 2:40 PM TECHNICAL SALES SUPPORT MANAGER Narrative [facility] - 07/13/2017 3:48 PM TECHNICAL SALES SUPPORT MANAGER Daniel Zayas MD LAB MICROBIOLOGY - GENE RAL ORDERABLES Final Result [facility] [id number] [place] [address] * DEXA SCAN (08/16/2015) Pathologist [facility] DEXA Scan Abnormal Comment:Low bone mass (osteo penia) Historical Provider HEALTH MAINTENANCE Final Result * COLONOSCOPY (02/01/2012 12:00 AM CDT) Anatomical Region Laterality Modality Other Narrative 02/01/2012 12:00 AM CDT Ordered by an unspecified provider. Procedure Note ProviderMarina MD - 02/01/2012 12:00 AM CDT PROCEDURE REPORT Patient: SVETA TAVERAS Account: [id number] Room No: : 1960 Patient Type: [facility] Attend.: Christopher Arevalo M.D. Admit Date: 02/01/2012 Dict.: Christopher Arevalo M.D. Disch. Date:02/01/2012 NAME OF PROCEDURE: COLONOSCOPY HISTORY: The patient is a 51-year-old female who presents forscreening colonoscopy. PHYSICAL EXAMINATION: The patient is a well-developed female. The lungsare clear. Cardiovascular examination is unremarkable. PROCEDURE: Colonoscopy was performed with the Symptom.ly video endoscope.The patient was premedicated by anesthesia. On digital exam, no abnormalitieswere palpable. We inserted the endoscope and advanced it to the cecum. Thecolon was not well prepped. There were areas that I could not see due to fecal material; however, what I did see was unremarkable. The patient toleratedthe procedure without difficulty. POSTOPERATIVE DIAGNOSIS: Poor prep, poor visualization. Christopher Arevalo M.D. Paulo TD: 02/02/2012 08:29 CC: Daniel Zayas M.D. Authenticated by Christopher Arevalo MD On 02/02/2012 09:52:08 AM Historical Provider ENDOSCOPY PROCEDURES Maureen l Result from Last 3 Months or Most Recently Relevant to Health Maintenance Insurance [facility] Advance Directives For more information, please contact: [phone] * Full Code (Latest Code Status on File) Date Activated Date Inactivated Comments 06/12/2019 8:14 AM 06/12/2019 2:00 PM * Full Code Date Activated Date Inactivated Comments 06/12/2019 8:14 AM 06/12/2019 8:14 AM Care Teams [employer] Principal Relationship Specialty Start Date End Date Daniel Zayas MD PCP - General 10/20/16
--- OUTSIDE RECORDS SUMMARY | 2024-09-04 14:20 | XMS_ITS | Referral Summary ---
Author Organization [facility] Address [address] [place] [id number] Care Team Providers Care Community Reinvestment Act Officer Name Role Phone Daniel Zayas MD Primary Care Provider Encounters Date Type Department Care Team Description 07/02/2024 Telephone [facility] Primary Care at [address] [phone] Deena Olson, TRACK INSPECTING SUPERVISOR 07/02/2024 Orders Only [facility] Primary Care at [address] [phone] Deena Olson, TRACK INSPECTING SUPERVISOR 06/30/2024 Telephone [facility] Primary Care at [address] [phone] Deena Olson, TRACK INSPECTING SUPERVISOR 06/30/2024 Orders Only [facility] Primary Care at [address] [phone] Deena Olson NP Right wrist pain (Primary Dx) 06/27/2024 10:00 AM CARD FILER Office Visit [facility] Primary Care at [address] [phone] Deena Olson NP Right wrist pain (Primary Dx); Ganglion cyst of both wrists 06/26/2024 11:31 AM CARD FILER - 06/26/2024 1:41 PM CARD FILER Emergency [facility] Emergency Department [address] [place] [address] Fall, initial encounter (Primary Dx) Discharge Disposition: Discharge to home or self care 06/26/2024 Nurse Triage [facility] Primary Care at [address] [place] [address] Daniel Zayas MD from Last 3 Months Allergies No known active allergies Medications esomeprazole [...] 05/29/2019 Assessment & Plan (05/29/2019 10:59 AM CARD FILER): Concerning of possible gastritis or gastric ulceration [...] also encouraged in the interim. Consultation to laborer aquatic life for possible EGD pending negative RUQ ultrasound. Addendum created below with findings of RUQ testing. Left peroneal mononeuropathy 04/14/2019 Thoracic and lumbosacral neuritis 12/06/2013 Overview (10/25/2016): LUMBOSACRAL NEURITIS NOS Assessment & Plan (08/26/2018 9:28 AM CARD FILER): I advised Pt is too early to fill her [place] that was last filled on 08/05/2018. I did encourage her to call us in 1 week to request script refill Resolved Problems Problem Noted Date Diagnosed Date Resolved Date Chest pain 05/29/2019 04/15/2020 Assessment & Plan (05/29/2019 10:56 AM CARD FILER): Epigastric/chest pain with radiation to left scapula. [...] 08/26/201804/15 Assessment & Plan (08/26/2018 9:32 AM CARD FILER): Suspicious of OA as cause of [id number] pain. Another differential diagnosis would include in injury to acetabulum based upon radiculopathy of pain. Recommending naproxen b.i.d., heat, an x-ray to diagnose etiology of condition. Will discuss further need for medications, consultations pending results of testing. Left maxillary sinusitis 07/19/201810/2018 Assessment & Plan (07/19/2018 10:21 AM CARD FILER): Recommended use of humidifier or vaporizer, antihistamines [id number], nasal rinses, Flonase nasal spray, certainly for [...] abuse Assessment & Plan (07/19/2018 10:24 AM CARD FILER): Smoking cessation was encouraged in office today. Patient believes that she might actually be able to quit cold turkey and is strongly considering this. I did encourage her to reach out test we can assist with cessation in any way Menopausal syndrome 03/08/2011 04/15/20 20 Overview (10/27/2016): Menopausal syndrome Immunizations Name Administration Dates Next Due H1N1 [...] 10/27/2020,09/29/2020 Pneumococcal Polysaccharide PPV23 06/15/2015 Tdap 04/30/2009 Social History Tobacco Use Types Packs/Day Years [...] on file Legal Sex Female 11:55 PM CARD FILER Gender Identity Female 12/09/2021 12:28 AM CDT Sexual Orientation Not on file Last Filed Vital Signs Vital Sign Reading Time Taken Comments Blood Pressure 100/60 06/27/2024 9:53 AM CARD FILER Pulse 71 06/27/2024 9:53 AM CARD FILER Temperature 36.8 C (98.2 F) 06/26/2024 1:34 PM CARD FILER Respiratory Rate 16 06/27/2024 9:53 AM CARD FILER Oxygen Saturation 99% 06/27/2024 9:53 AM CARD FILER Inhaled Oxygen Concentration - - Weight 51.7 kg (114 lb) 06/27/2024 9:53 AM CARD FILER Height 162.6 cm (5' 4 ) 06/27/2024 9:53 AM CARD FILER Body Mass Index 19.57 06/27/2024 9:53 AM CARD FILER Plan of Treatment Not on file Procedures Procedure Name Priority Date/Time Associated Diagnosis Comments XR SPINE LUMBAR 2 OR 3 VIEWS ED 06/26/2024 11:51 AM CARD FILER XR HIP RIGHT 2 OR 3 VIEWS ED 06/26/2024 11:51 AM CARD FILER XR WRIST RIGHT 3 OR MORE VIEWS ED 06/26/2024 11:51 AM CARD FILER PAP WITH REFLEX TO HIGH RISK HPV Routine 05/03/2021 10:40 AM CDT SCREENING MAMMOGRAM BILATERAL W JUAN JOSE Schedule Routine, Read Routine (OP Routine) 04/22/2020 8:53 AM CDT Visit for screening mammogram HEPATITIS C AB REFLEX RNA QUANT PCR Routine 07/13/2017 9:14 AM CARD FILER HM DEXA SCAN Routine 08/16/2015 COLONOSCOPY 02/01/2012 12:00 AM CDT from Last 3 Months or Most Recently Relevant to Health Maintenance Results * XR Hip Right 2 or 3 Views (06/26/2024 11:51 AM CARD FILER) Anatomical Region Laterality Modality Lower Extremities, Hip, Pelvis Right C omputed Radiography 06/26/2024 12:1 4 PM CARD FILER Narrative 06/26/2024 12:15 PM CARD FILER EXAM DESCRIPTION: XR HIP RIGHT 2 OR [...] Basilio Cortes M.D. MM: MM Report ID: [id number] Reading Location: [id number] Procedure Note Basilio Cortes MD - 06/26/2024 [...] Basilio Cortes M.D. MM: MM Report ID: [id number] Reading Location: [id number] us Isauro Segura TRACK INSPECTING SUPERVISOR IMG XR PROCEDURES Final Res ult * XR Wrist Right 3 or More Views (06/26/2024 11:51 AM CARD FILER) Anatomical Region Laterality Modality Upper Extremities, Wrist Right Compute d Radiography 06/26/2024 12:1 5 PM CARD FILER Narrative 06/26/2024 12:17 PM CARD FILER EXAM DESCRIPTION: XR WRIST RIGHT 3 OR [...] Charan Blue M.D. KR: MELISSA Report ID: [id number] Reading Location: [id number] Procedure Note Charan Blue MD - 06/26/2024 [...] Charan Blue M.D. KR: MELISSA Report ID: [id number] Reading Location: [id number] us Isauro Segura TRACK INSPECTING SUPERVISOR IMG XR PROCEDURES Final Res ult * XR Spine Lumbar 2 or 3 Views (06/26/2024 11:51 AM CARD FILER) Anatomical Region Laterality Modality Spine N/A Computed Radiogr aphy 06/26/2024 12:1 7 PM CARD FILER Narrative 06/26/2024 12:18 PM CARD FILER EXAM DESCRIPTION: XR SPINE LUMBAR 2 OR [...] Charan Blue M.D. KR: MELISSA Report ID: [id number] Reading Location: [id number] Procedure Note Charan Blue MD - 06/26/2024 EXAM DESCRIPTION: XR SPINE [...] Charan Blue M.D. KR: MELISSA Report ID: [id number] Reading Location: [id number] Isauro Segura TRACK INSPECTING SUPERVISOR IMG XR PROCEDURES Final Res ult * Pap with reflex to High Risk HPV (05/03/2021 10:40 AM CDT) Pap test 05/03/2021 10:4 0 AM CDT 05/03/2021 10:40 AM CDT Narrative 05/05/2021 3:19 PM CDT [facility] Department of Pathology [address] [place] [id number] Final Report with Addendum Note to [...] the details. Patient Name: SVETA TAVERAS Address: [address] [place] [address] Gender: F : 1960 (Age: 60) Service: Laboratory Location: Lab [facility] #: [id number] Patient Type: Ref Lab Taken: 05/03/2021 Received: 05/03/2021 Accessioned:: 05/04/2021 Reported: 05/05/2021 Physician(s): Dr. Daniel Zayas M.D. Dr. Daniel Zayas M.D. ARIANNE Galloway Diagnosis: Source of Specimen: Imaged Thinprep Pap Test plus HPV - Wood Molder Cytologic Material Specimen Adequacy: - Specimen satisfactory [...] Test performed utilizing Gen-Probe Aptima assay. TUCKER Haddad(ASC) Report Electronically Reviewed and Signed Out By TUCKER Haddad(ASC) 05/04/2021 16:25:06 Specimen(s) Received: A: Imaged Thinprep Pap Test plus HPV - Wood Molder Cytologic Material Clinical History: Last Menstrual Period: [...] determined by the Surgical Pathology Department at [facility] as part of an ongoing quality control associate program and in compliance with federally mandated [...] characteristics determined by the Surgical Pathology Department [facility]. It has not been cleared or [...] for her next mammogram. Electronically signed by: Lea Vo 04/23/2020 9:56 AM CDT EXAMINATION: SCREENING MAMMOGRAM [...] C RNA Quantitative PCR (07/13/2017 9:14 AM CARD FILER) Hep C Ab Negative Negative LUCA SANCHEZ Blood specimen (specimen) 07/13/2017 9:14 AM CARD FILER 07/13/2017 2:40 PM CARD FILER Narrative LUCA SANCHEZ - 07/13/2017 3:48 PM CARD FILER Daniel Zayas MD LAB MICROBIOLOGY - GENE RAL ORDERABLES Final Result LUCA [id number] [address] Department [place] [address] * DEXA SCAN (08/16/2015) Pathologist [facility] DEXA Scan Abnormal Comment:Low bone mass (osteo penia) Historical Provider HEALTH MAINTENANCE Final Result * COLONOSCOPY (02/01/2012 12:00 AM CDT) Anatomical Region Laterality Modality Other Narrative 02/01/2012 12:00 AM CDT Ordered by an unspecified provider. Procedure Note Provider, MD Marina - 02/01/2012 12:00 AM CDT PROCEDURE REPORT Patient: SVETA TAVERAS Account: [id number] Room No: : 1960 Patient Type: [facility] Attend.: Christopher Arevalo M.D. Admit Date: 02/01/2012 Dict.: Christopher Arevalo M.D. Disch. Date:02/01/2012 NAME OF PROCEDURE: COLONOSCOPY HISTORY: The patient is a 51-year-old female who presents forscreening colonoscopy. PHYSICAL EXAMINATION: The patient is a well-developed female. The lungsare clear. Cardiovascular examination is unremarkable. PROCEDURE: Colonoscopy was performed with the eSeekers video endoscope.The patient was premedicated by anesthesia. [...] MD On 02/02/2012 09:52:08 AM Historical Provider MD ENDOSCOPY PROCEDURES Maureen l Result from Last 3 Months or Most Recently Relevant to Health Maintenance Insurance R [facility] Advance Directives For more information, please contact: [phone] * Full Code (Latest Code Status on File) Date Activated Date Inactivated Comments 06/12/2019 8:14 AM 06/12/2019 2:00 PM * Full Code Date Activated Date Inactivated Comments 06/12/2019 8:14 AM 06/12/2019 8:14 AM Care Teams Community Reinvestment Act Officer Relationship Specialty Start Date End Date Daniel Zayas MD PCP - General 10/20/16
[2024-09-04 14:28] VITALS: BP 100/70; PULSE 67; RESP 20; TEMP 37; O2SAT 100
--- NOTE | 2024-09-04 15:31 | ED.FEMALEGU ---
HPI - Female Genitourinary General Chief complaint: Urogenital-Female Stated complaint: bladder issues Time Seen by Provider: 09/04/24 15:20 Source: patient, RN notes reviewed and old records reviewed Mode of arrival: ambulatory Limitations: no limitations History of Present Illness HPI Narrative: 64 year old female presents to [facility] care with complaints of burning with urination for the past 2-3 days. Patient reports that she has been taking oral cranberry juice and has increased her water intake. Patient reports no fevers chills or sweats. Patient reports no concern for STD exposure, denies any vaginal discharge or itching. MD elicited complaint: UTI Pertinent past history: other (has had previous UTI) Onset (ago): day(s) (2-3 days) Location of symptoms: urethra Severity scale (1-10): 3 Quality of pain: burning Vaginal discharge: none Treatment prior to arrival: other (increased fluid and drinking cranberry juice) Related Data Home Medications ?Medication ?Instructions ?Recorded ?Confirmed ?Last Taken ?Type fluoxetine 10 mg capsule 10 mg PO DAILY 11/21/23 09/04/24 Unknown History omeprazole 40 mg capsule,delayed 40 mg PO DAILY 11/21/23 05/01/24 Unknown History release pregabalin 75 mg capsule 75 mg PO DAILY 03/09/24 09/04/24 Unknown History hydrocodone 5 mg-acetaminophen 325 tablet 09/04/24 Unknown History mg tablet tizanidine 2 mg tablet mg 09/04/24 Unknown History trazodone 50 mg tablet mg 09/04/24 Unknown History Allergies Allergy/AdvReac Type Severity Reaction Status Date / Time No Known Allergies Allergy Mild Verified 09/04/24 14:50 Review of Systems Review of Systems: CONSTITUTIONAL: Denies fever, chills, or sweats. CARDIOVASCULAR: Denies chest pain, palpitations, or edema. RESPIRATORY: Denies cough or dyspnea. GASTROINTESTINAL: Denies abdominal pain, nausea, vomiting, or diarrhea. GENITOURINARY: Reports dysuria, frequency, urgency. Denies flank pain or hematuria. SKIN: Denies rash or itching. MUSCULOSKELETAL:Positive for chronic low back pain or myalgia. Denies CVA tenderness NEUROLOGIC: Denies headache All systems reviewed & are unremarkable except as noted in HPI and below PMFSH Past Medical History Medical History (Updated 09/06/24 @ 16:28 by Nisha Gaines NP) Insomnia GERD (gastroesophageal reflux disease) Anxiety Chronic back pain Surgical History Surgical History (Updated 09/06/24 @ 16:23 by Nisha Gaines NP) History of lumbosacral spine surgery Previous section Family History Family History Mother Family history non-contributory Social History Social History (Updated 09/06/24 @ 16:22 by Nisha Gaines NP) Smoking status: Current every day smoker Tobacco type: e-cigarettes/vaping Alcohol intake: unknown Substance use: current Substance use type: opiates Last use: for pain control of chronic back pain Living arrangements: with family Gender identity (if verbalized by the patient): Female Spiritual care concerns: No Comments At time of signature, agree with nursing past medical, surgical, social and family history. There is no relevant family history pertinent to the presenting complaint Exam Narrative: GENERAL: Well-appearing, well-nourished, and in no acute distress. HEAD: Normocephalic, atraumatic. NECK: Supple. no lymphadenopathy CHEST: Clear to auscultation. No respiratory distress. SAO2 100% on room air HEART: Regular rate and rhythm. No murmur heard. Normal peripheral pulses. ABDOMEN: Soft, nontender, nondistended, normal active bowel sounds. No CVA tenderness reports urinary burning and some frequeny of urination EXTREMITIES: Normal range of motion. No edema. SKIN: Warm, dry, no rash. NEURO: No focal deficits. Alert and oriented x3. Course Course Emergency Course: Patient is aware of diagnosis, understands and agrees to treatment plan.? Anticipatory guidance given.? Patient agrees to follow-up as directed and is aware of reasons to seek care at the emergency department. Portions of this record may have been created with voice recognition software Level of Care: Express Care Visit Vital Signs Vital signs: Vital Signs Temperature 37.0 C 09/04/24 14:28 Pulse Rate 67 09/04/24 14:28 Respiratory Rate 20 09/04/24 14:28 Blood Pressure 100/70 09/04/24 14:28 Pulse Oximetry 100 09/04/24 14:28 Oxygen Delivery Room Air 09/04/24 14:28 Temperature 37.0 C 09/04/24 14:28 Pulse Rate 67 09/04/24 14:28 Respiratory Rate 20 09/04/24 14:28 Blood Pressure 100/70 09/04/24 14:28 Pulse Oximetry 100 09/04/24 14:28 Oxygen Delivery Room Air 09/04/24 14:28 reviewed MDM - Female Genitourinary MDM Narrative Medical decision making narrative: Exam findings and UA show no acute concerns or changes; patient is non-toxic appearing and is in no distress.? Patient is appropriate for outpatient treatment and follow-up. Differential Diagnosis Differential diagnosis: Likely urinary tract infection, cystitis and other (dysuria) Medical Records Attestation: I reviewed the patient's medical records. Lab Data Attestation: I reviewed the patient's lab results. Lab results narrative: See urine dip: trace blood, leukocytes 1+ Labs: Lab Results 09/04/24 Range/Units 14:48 POC Urine Color Light/pale POC Urine Clarity Clear POC Urine pH 6.5 POC Ur Specif [place] 1.020 POC Urine Protein Negative (Negative) POC Ur Glucose (UA) Negative (Negative) POC Urine Ketones Negative (Negative) POC Urine Blood Trace (Negative) POC Urine Nitrite Negative (Negative) POC Urine Bilirubin Negative (Negative) POC Urine Urobilinogen 0.2 POC U Leukocyte Esteras 1+ (Negative) reviewed Critical Care Time Critical Care Time Critical Care Time: No Discharge Plan Discharge Clinical Impression: UTI (urinary tract infection) Qualifiers: Urinary tract infection type: site unspecified Hematuria presence: with hematuria Qualified Code(s): N39.0 - Urinary tract infection, site not specified; R31.9 - Hematuria, unspecified Patient Disposition: Home, Self-Care Condition: Stable Instructions: Antibiotic Form Additional Instructions: Increase fluids especially cranberry juice and water Avoid caffeine and carbonated beverages Antibiotic as directed Medicine as directed--cautioned it will cause your urine to be bright orange Tylenol/ibuprofen for pain or fever Follow-up with her primary care provider if further problems or concerns Recheck if you have fever over 101, nausea and vomiting. If your symptoms persist, change or worsen significantly before you can contact your personal physician then please, without delay, go to the emergency department for further evaluation. Follow-up with PCP in 7-10 days or sooner if needed Patient Language: Danish Prescriptions: New sulfamethoxazole-trimethoprim [Bactrim DS] 800-160 mg tablet 1 tablet PO Q12H Qty: 14 0RF No Action fluoxetine 10 mg capsule 10 mg PO DAILY omeprazole [Prilosec] 40 mg Capsule,Delayed Release(Dr/Ec) 40 mg PO DAILY pregabalin 75 mg capsule 75 mg PO DAILY tizanidine 2 mg tablet trazodone 50 mg tablet hydrocodone-acetaminophen 5-325 mg tablet Follow-up/Referrals: Jorge,Giorgio Kang MD [Primary Care Provider] - Time of Disposition: 15:41 Quality Nelson Coma Scale Eyes: Open Verbal: Oriented and Alert Motor: Follows Commands Ajay Coma Total Score: 15
[2024-09-04 15:36] LABS: EDUAAPPEAR Clear; EDUABILI Negative (Negative); EDUABLOOD Trace (Negative); EDUACOLOR1 Light/Pale; EDUAGLUCOSE Negative (Negative); EDUAKETONE Negative (Negative); EDUALEUKO 1+ (Negative); EDUANITRATE Negative (Negative); EDUAPH 6.5; EDUAPROTEIN Negative (Negative); EDUAUROBILI 0.2
== END 2024-09-04 15:49 | disposition home or self-care (01) ==
PROVIDERS: Emergency Provider Registered Nurse; PCP Internal Medicine
DX: N39.0 Urinary tract infection, site not specified (principal); F17.290 Nicotine dependence, other tobacco product, uncomplicated; Z79.899 Other long term (current) drug therapy; Z79.891 Long term (current) use of opiate analgesic
CPT/HCPCS: 81003; 87077; 87086; 87186; 99213; G0463